=== PATIENT | male | born 1950 | race Caucasian/White ===

== ENCOUNTER 2023-01-13 22:14 | Emergency (ER) | payer OTHER, MEDICARE ==
[~2023-01-13] VITALS: Ht 180.3 cm; Wt 95.0 kg
[2023-01-14 00:18] LABS: BASOPHILS # (AUTO) 0.1 X10'3 (0-0.2); BASOPHILS % (AUTO) 0.5 % (0-1); EOSINOPHILS % (AUTO) 0.4 % (0-6); HEMATOCRIT 44.5 % (42.0-52.0); HEMOGLOBIN 15.1 g/dl (14.0-17.9); LYMPHOCYTES # (AUTO) 1.5 X10'3 (1.1-4.8); MEAN CORPUSCULAR HEMOGLOBIN 33.2 PG (27.0-31.0); MEAN CORPUSCULAR VOLUME 97.6 FL (78-98); MEAN PLATELET VOLUME 9.3 FL (7.4-10.4); MONOCYTES # (AUTO) 0.7 X10'3 (0-0.9); MONOCYTES % (AUTO) 6.3 % (2-12); NEUTROPHILS # (AUTO) 8.5 X10'3 (1.8-7.7); NEUTROPHILS % (AUTO) 78.8 % (42-75); PLATELET COUNT 167 X10'3 (140-440); RED BLOOD COUNT 4.56 X10'6 (4.70-6.10); RED CELL DISTRIBUTION WIDTH 14.2 % (11.5-14.5); WHITE BLOOD COUNT 10.8 X10'3 (4.5-11.0)
[2023-01-14 00:19] LABS: BILIRUBIN,URINE NEGATIVE (Neg); CLARITY,URINE SLIGHTLY CLOUDY (Clear); COLOR,URINE YELLOW (Yellow); GLUCOSE, URINE NEGATIVE (Neg); KETONES,URINE 15 mg/dl (Neg); LEUKOCYTE ESTERASE ,URINE NEGATIVE (Neg); NITRITES, URINE NEGATIVE (Neg); OCCULT BLOOD,URINE MODERATE (Neg); PH,URINE 5.5 (4.8-8.0); PROTEIN,URINE TRACE mg/dl (Neg); UROBILINOGEN,URINE 0.2 E.U/dL (0.2-1.0)
[2023-01-14 00:23] LABS: UA COLLECTION TYPE CLN CATCH MIDSTREAM
[2023-01-14 00:26] LABS: MUCUS STRANDS MANY /LPF (Neg)
[2023-01-14 00:27] LABS: CAL OXALATE CRYSTALS 4+ /HPF (NEGATIVE)
[2023-01-14 00:28] LABS: WBC,URINE 0-4 /HPF (0-4)
[2023-01-14 00:29] LABS: BACTERIA,URINE FEW /HPF (Neg); SQUAMOUS EPITHELIAL CELL,UR MODERATE /LPF (FEW)
[2023-01-14 00:30] LABS: RBC,URINE 50-100 /HPF (0-2)
[2023-01-14 00:34] LABS: ALANINE AMINOTRANSFERASE 36 U/L (12-78); ALBUMIN 4.3 G/DL (3.4-5.0); ALBUMIN/GLOBULIN RATIO 1.3 (1.1-1.5); ALKALINE PHOSPHATASE 81 IU/L (46-116); ANION GAP 8 (8-16); ASPARTATE AMINO TRANSFERASE 27 U/L (10-37); BILIRUBIN,TOTAL 0.7 MG/DL (0.1-1.0); BLOOD UREA NITROGEN 22 MG/DL (7-18); BUN/CREATININE RATIO 15.7 (10.0-20.0); CALCIUM 9.8 MG/DL (8.5-10.1); CHLORIDE 104 MMOL/L (99-107); GLUCOSE 136 MG/DL (70-104); POTASSIUM 5.2 MMOL/L (3.5-5.1); SODIUM 141 MMOL/L (135-145); TOTAL CARBON DIOXIDE 29.4 MMOL/L (24-32); TOTAL PROTEIN 7.7 G/DL (6.4-8.2); eCRCL 50 ML/MIN; eGFR 50 ML/MIN
[2023-01-14 00:36] LABS: LIPASE 35 U/L (16-77)
[2023-01-14] MEDS ORDERED: normal saline 1000ML IV soln IVB ONE (01:00)
[2023-01-14] MEDS ORDERED: acetaminophen 325mg tablet PO ONE (04:15)
[2023-01-14] MEDS ORDERED: FLO0.4C PO (04:31)
[2023-01-14] MEDS ORDERED: NAPR-56 PO (04:31)
[2023-01-14] MEDS ORDERED: METO5TAB85 PO (04:31)
[2023-01-14 04:56] VITALS: BP 137/83; PULSE 79; RESP 18; TEMP 98; O2SAT 99
[2023-01-14] MEDS ORDERED: tamsulosin 0.4mg capsule PO SCH (21:00)
== END 2023-01-14 04:59 | disposition home or self-care (01) ==
LOC: ER 22:15
DX: N13.30 Unspecified hydronephrosis (principal); N28.1 Cyst of kidney, acquired; E78.00 Pure hypercholesterolemia, unspecified; E11.9 Type 2 diabetes mellitus without complications; I11.0 Hypertensive heart disease with heart failure
CPT/HCPCS: 36415; 71045; 74176; 80053; 81001; 83690; 84484; 85025; 93005; 99285; J7030